=== PATIENT | female | born 1960 | race Caucasian/White ===

== ENCOUNTER 2018-09-13 07:09 | Day surgery (SDC) | payer OTHER ==
[~2018-09-13 07:09] MED LIST: CEFAZOLIN 2 GM/50 ML (PMX) 50 ML IVPB
[2018-09-13] MEDS ORDERED: ACETAMINOPHEN 500 MG TAB PO (07:30)
[2018-09-13] MEDS ORDERED: PROPOFOL 40 ML (08:39)
[2018-09-13] MEDS ORDERED: CEFAZOLIN 1 GM INJ (08:39)
[2018-09-13] MEDS ORDERED: LIDOCAINE 2% (SDV) 5 ML INJ (08:39)
[2018-09-13] MEDS ORDERED: MIDAZOLAM 1 MG/ML 2 ML INJ (08:39)
[2018-09-13] MEDS ORDERED: EPHEDrine 25 MG/5 ML SYG (08:39)
[2018-09-13] MEDS ORDERED: FENTAnyl 50 MCG/ML VIAL ×2 (08:39→10:53)
[2018-09-13] MEDS ORDERED: ONDANSETRON 4 MG INJ (08:39)
[2018-09-13] MEDS ORDERED: FAMOTIDINE 20 MG INJ (08:40)
[2018-09-13] MEDS ORDERED: METOCLOPRAMIDE 10 MG INJ (09:38)
[2018-09-13] MEDS ORDERED: HYDROmorphONE 1 MG/5 ML IV SYRINGE IV ×3 (10:00)
[2018-09-13] MEDS ORDERED: OXYCODONE/ACETAMINOPHEN (5/325) TAB PO ×2 (10:00)
[2018-09-13] MEDS ORDERED: morphine 2 MG INJ IV ×2 (10:00)
[2018-09-13] MEDS ORDERED: ALBUTEROL 0.083% (NEB) 2.5 MG/3 ML AMP HHN (10:00)
[2018-09-13] MEDS ORDERED: EPHEDrine 25 MG/5 ML SYG IV (10:00)
[2018-09-13] MEDS ORDERED: FENTAnyl 50 MCG/ML VIAL IV (10:00)
[2018-09-13] MEDS ORDERED: MEPERIDINE 25 MG INJ IV (10:00)
[2018-09-13] MEDS ORDERED: LABETALOL HCL 20MG INJ IV (10:00)
[2018-09-13] MEDS ORDERED: DIPHENHYDRAMINE 50 MG INJ IV (10:00)
[2018-09-13] MEDS: POLYMYXIN/BACITRACIN 1L IRRIG (10:29)
[2018-09-13] MEDS: BUPIVACAINE 0.5% (SDV) 30 ML INJ (10:29)
[2018-09-13] MEDS ORDERED: METOPROLOL 5 MG INJ (10:52)
[2018-09-13] MEDS ORDERED: ROPIVACAINE 0.5 % 30 ML VIAL (12:04)
[2018-09-13] MEDS ORDERED: KETOROLAC 30 MG INJ (12:50)
[2018-09-13] MEDS: KETOROLAC 30 MG INJ IV (12:53)
[2018-09-13] MEDS: hydrALAzine 20 MG INJ IV (12:54)
[2018-09-13] MEDS: FENTAnyl 50 MCG/ML VIAL IV (12:54)
[2018-09-13] MEDS: ONDANSETRON 4 MG INJ IV ×2 (12:54→15:04)
== END 2018-09-13 16:03 | disposition home or self-care (01) ==
LOC: SDS 07:09
DX: T84.84XA Pain due to internal orthopedic prosthetic devices, implants and grafts, initial encounter (principal); M20.12 Hallux valgus (acquired), left foot; M20.42 Other hammer toe(s) (acquired), left foot; J45.909 Unspecified asthma, uncomplicated; K21.9 Gastro-esophageal reflux disease without esophagitis; Y83.8 Other surgical procedures as the cause of abnormal reaction of the patient, or of later complication, without mention of misadventure at the time of the procedure
CPT/HCPCS: 20680; 73630-LT; 88300; 88304; 88311